=== PATIENT | female | born 1965 | race Caucasian/White ===

== ENCOUNTER → 2022-04-06 | Outpatient (CLI) | payer BC ==
[~2022-04-06] MED LIST: COLACE 100MG C100 MG PO; HYDROCODON-ACE1 EAC4 PO; LEVOXYL75 MCG PO; LYLLANA1 EAC4 TD; NAPROXEN250 MG PO; PROGESTERONE100 MG PO
[2022-04-06 12:25] LABS: HEMOGLOBIN 13.6 gm/dl (12.3-15.3); RED BLOOD COUNT 4.59 M/UL (4.00-5.10); WHITE BLOOD COUNT 7.9 K/UL (4.5-11.0)
== END ==
LOC: OPSV2 09:00
PROVIDERS: Obstetrics & Gynecology
DX: Z01.812 Encounter for preprocedural laboratory examination (principal); N84.0 Polyp of corpus uteri; Z88.1 Allergy status to other antibiotic agents
CPT/HCPCS: 36415; 81001; 85025

== ENCOUNTER → 2022-04-07 | Day surgery (SDC) | payer BC | END | disposition home or self-care (01) | LOC: OR 05:38 | DX: N85.8 Other specified noninflammatory disorders of uterus (principal); N72 Inflammatory disease of cervix uteri; N85.4 Malposition of uterus; Z88.1 Allergy status to other antibiotic agents | CPT/HCPCS: J1100; J1170; J1885; J2001; J2250; J2405; J2704; J2795 ==